=== PATIENT | female | born 1950 | race Caucasian/White ===

== ENCOUNTER 2023-02-05 19:49 | Emergency (ER) | payer MEDICARE ==
[~2023-02-05] VITALS: Ht 152.4 cm; Wt 75.7 kg
[2023-02-05 19:55] VITALS: BP 150/74
--- NOTE | 2023-02-05 20:26 | ED Lower Extremity ---
General Chief Complaint: Laceration Stated Complaint: RIGHT LEG LAC Nursing Triage Note: PATIENT ARRIVED AMBULATORY/WALKER TO ER WITH COMPLAINT OF RT LOWER LEG LACERATION. DAUGHTER STATES PATIENT WAS ATTEMPTING TO HANG CURTAINS AND HURT LEG WITH JACINTA. PATIENT ON A BLOOD THINNER AND DAUGHTER HAD TROUBLE STOPPING BLEEDING. DRESSING ON WOUND AT THIS TIME. Source: patient Exam Limitations: no limitations History of Present Illness Date Seen by Provider: Feb 05, 2023 Time Seen by Provider: 20:15 Initial Comments 72-year-old female presents to the ER with laceration to the right lower leg which occurred around 5:30 or 6 PM. Patient's daughter reports she has been trying to control the bleeding since then but has been unable to. Uncertain of last tetanus shot. Patient takes aspirin and Eliquis. Allergies and Home Medications Allergies Coded Allergies: Penicillins (Verified Allergy, Unknown, 02/05/23) bupropion (Verified Allergy, Unknown, 02/05/23) fluoxetine (Verified Allergy, Unknown, 02/05/23) varenicline (Verified Allergy, Unknown, 02/05/23) Patient Home Medication List Home Medication List Reviewed: Yes Review of Systems Constitutional: see HPI Physical Exam Vital Signs Vital Signs - First Documented 02/05/23 19:55 Temp 37.0 Pulse 75 Resp 18 B/P (MAP) 150/74 (99) Pulse Ox 96 O2 Delivery Room Air Capillary Refill : Less Than 3 Seconds Height, Weight, BMI Height: '" Weight: lbs. oz. kg; 32.00 BMI Method: General Appearance: WD/WN, no apparent distress Neck: supple, normal inspection Cardiovascular: regular rate, rhythm Respiratory: lungs clear, normal breath sounds, no respiratory distress, no accessory muscle use Legs: right leg other (Laceration medial right lower leg) Neurologic/Psychiatric: alert, normal mood/affect Skin: normal color, warm/dry, other (Laceration) Procedures/Interventions Wound Location: Lower Extremities Other Wound Location right lower leg Wound's Depth, Shape: sub Q Irrigated w/ Saline (ccs): 100 Anesthesia: 1% Lidocaine Volume Anesthetic (ccs): 3 Wound Debrided: minimal Suture: Ethlion Suture Size: 4-0 Number of Sutures: 17 Progress/Results/Core Measures Results/Orders My Orders Orders - STEVE PADILLA BUDGET COORDINATOR Dipht,Pertuss(Acell),Tet Adult (Boostrix (02/05/23 20:30) Lidocaine/Epi 2% 1:100,000 (Xylocaine/Ep (02/05/23 20:30) Lidocaine/Epi 1% 1:100,000 (Xylocaine /E (02/05/23 20:33) Vital Signs/I&O 02/05/23 19:55 Temp 37.0 Pulse 75 Resp 18 B/P (MAP) 150/74 (99) Pulse Ox 96 O2 Delivery Room Air Blood Pressure Mean: 99 Progress Progress Note : Progress Note Patient seen and evaluated, resting comfortably in bed, no acute distress. Laceration will need to be repaired with sutures. Patient needs her tetanus updated. Tetanus has been ordered. Laceration repair, see procedure note. Discharge instructions and return precautions provided. Departure Impression Primary Impression: Laceration Disposition: HOME, SELF-CARE Condition: Stable Departure-Patient Inst. Decision time for Depature: 21:04 Referrals: NO,LOCAL PHYSICIAN (PCP/Family) Primary Care Physician Patient Instructions: Laceration Repair With Stitches ED Add. Discharge Instructions: Keep the dressing in place for 24 hours. After 24 hours you can remove the dressing. You may wash the wound with soap and water, let water run over it, do not scrub. Return in 7 to 10 days to have the sutures removed. Monitor for signs of infection like redness, swelling, discolored odorous drainage. Turn for signs of infection, or any other new, concerning, or worsening symptoms. All discharge instructions reviewed with patient and/or family. Voiced understanding. STEVE PADILLA BUDGET COORDINATOR Feb 05, 2023 20:26
[2023-02-05] MEDS ORDERED: LIDOCAINE/EPI 2% 1:100,00 (XYLOCAINE) 20 ML VIAL INJ ONE (20:30)
[2023-02-05] MEDS ORDERED: TETANUS,DIPTH,PERTUSS P/F (BOOSTRIX) 0.5 ML VIAL IM ONE (20:30)
[2023-02-05] MEDS ORDERED: LIDOCAINE/EPI 1%-1:100,000 (XYLOCAINE) 20ML ONE (20:33)
== END 2023-02-05 21:14 | disposition home or self-care (01) ==
LOC: ER 19:52
DX: S81.811A Laceration without foreign body, right lower leg, initial encounter (principal); Z79.82 Long term (current) use of aspirin; Z79.01 Long term (current) use of anticoagulants; Z28.310 Unvaccinated for COVID-19; Z23 Encounter for immunization; W26.8XXA Contact with other sharp object(s), not elsewhere classified, initial encounter
CPT/HCPCS: 12002; 90715

== ENCOUNTER 2023-02-15 10:52 | Emergency (ER) | payer MEDICARE ==
[~2023-02-15] VITALS: Ht 152 cm; Wt 72.5 kg
[2023-02-15 11:20] VITALS: BP 113/57
== END 2023-02-15 11:35 | disposition home or self-care (01) ==
LOC: EDUNIT# 10:52 → ER 10:54
DX: Z48.02 Encounter for removal of sutures (principal); Z28.310 Unvaccinated for COVID-19